=== PATIENT | female | born 1990 ===

== ENCOUNTER 2022-01-23 16:54 | Emergency (ER) | payer SELFPAY ==
[2022-01-23 20:37] VITALS: BP 157/77
[2022-01-23 23:45] LABS: Basophils # (Auto) 0.1 K/mm3 (0.0-0.1); Basophils % (Auto) 1.1 % (0.0-1.8); Eosinophils # (Auto) 0.2 K/mm3 (0.0-0.4); Eosinophils % (Auto) 2.1 % (0.0-4.3); Hematocrit 33.9 % (30.3-42.9); Hemoglobin 10.9 gm/dl (10.1-14.3); Lymphocytes # (Auto) 1.8 K/mm3 (1.2-5.4); Lymphocytes % (Auto) 17.4 % (13.4-35.0); Mean Corpuscular HGB Conc 32 % (30-34); Mean Corpuscular Volume 77 fl (79-97); Monocytes # (Auto) 0.7 K/mm3 (0.0-0.8); Monocytes % (Auto) 6.7 % (0.0-7.3); Platelet Count 338 K/mm3 (140-440); Red Cell Distribution Width 18.3 % (13.2-15.2)
[2022-01-23 23:54] LABS: Bacteria,Urine 2+ /HPF (Negative); Mucus,Urine 3+ /HPF
[2022-01-24 00:01] LABS: Bilirubin,Urine Negative (Negative); Color,Urine Straw (Yellow)
[2022-01-24 00:02] LABS: Blood,Urine Negative (Negative); PH,Urine 6.5 (5.0-7.0); Protein,Urine <30 mg dL mg/dL (Negative); Urobilinogen,Urine < 2.0 mg/dL (<2.0)
[2022-01-24 00:04] LABS: Alanine Aminotransferase 10 units/L (7-56); Blood Urea Nitrogen 5 mg/dL (7-17); Calcium 9.4 mg/dL (8.4-10.2); Hemolysis Index 8
[2022-01-24 00:08] LABS: BUN/Creatinine Ratio 10
== END 2022-01-24 01:39 | disposition left against medical advice (07) ==
LOC: ED 16:54
DX: O26.892 Other specified pregnancy related conditions, second trimester (principal); Z3A.19 19 weeks gestation of pregnancy; R10.9 Unspecified abdominal pain; Z53.21 Procedure and treatment not carried out due to patient leaving prior to being seen by health care provider
CPT/HCPCS: 36415; 80053; 81001; 84702; 85025